=== PATIENT | female | born 1985 | race Caucasian/White ===

== ENCOUNTER → 2021-05-10 09:34 | Outpatient (CLI) | payer BC, SELFPAY ==
--- NOTE | ~2021-05-10 | MR_ITS ---
EXAMINATION: MR knee RT wo con DATE: 05/10/2021 10:21 INDICATION: Generalized right knee pain after running 3 weeks prior TECHNIQUE: Magnetic resonance imaging (MRI) of the right knee was performed without intravenous contr ast. Sequences included coronal PD-weighted FSE, coronal PD-weighted FS FSE, sagittal T2-weighted FS E, sagittal PD-weighted FS FSE and axial PD weighted fat saturated FSE. COMPARISON: None. FINDINGS: Medial compartment: Medial meniscus is normal. Articular cartilage is normal. Lateral compartment: Lateral meniscus is normal. Articular cartilage is normal. Patellofemoral compartment: Articular cartilage is normal. Ligaments and tendons: Anterior and posterior cruciate ligaments are normal. The fibular collateral ligament complex is norm al. There is mild thickening of the proximal medial collateral ligament without surrounding edema con sistent with scarring related to chronic sprain. The quadriceps tendon is normal. There is prominent focal thickening of the proximal patellar tendon with normal low signal intensity along the anterior margin of the lower pole of the patella. There is mild underlying edema consistent with mild prepatel lar bursitis. The visualized medial and lateral hamstring tendons as well as the iliotibial band are normal. Fluid: Physiologic amount of fluid in the joint space. No loose osteochondral bodies identified. Osseous/other: Normal marrow signal. No fracture or pathologic marrow replacing process. IMPRESSION: 1. Mild prepatellar bursitis overlying a region of focal thickening of the patellar tendon could be r elated to localized tendinosis such as in the setting of jumper's knee or potentially a patellar tend on fibroma. 2. Normal menisci, cartilage and stabilizing ligaments of the knee. Reviewed, dictated and finalized at location A. IMPRESSION: 1. Mild prepatellar bursitis overlying a region of focal thickening of the kitchen llar tendon could be related to localized tendinosis such as in the setting of jumper's knee or potentially a patellar tendon fibroma. 2. Normal menisci, cartilage and stabilizing ligaments of the knee.
== END ==
PROVIDERS: PCP Physician Assistant; Visit Provider Chiropractor Rehabilitation
DX: M25.561 Pain in right knee (principal); M71.561 Other bursitis, not elsewhere classified, right knee
CPT/HCPCS: 73721

== ENCOUNTER → 2023-07-30 12:44 | Outpatient (CLI) | payer OTHER, SELFPAY ==
--- NOTE | ~2023-07-30 | MM_ITS ---
EXAMINATION: MM screening eva BI w leroy HISTORY: Screening mammogram TECHNIQUE: Craniocaudal and mediolateral oblique 3-D tomosynthesis images were obtained and synthetic 2-D images were generated. CAD analysis was submitted and interpreted. COMPARISON: None, baseline BREAST PARENCHYMAL COMPOSITION: The breasts are heterogeneously dense, which may obscure small masses . FINDINGS: No suspicious mass, calcification, or architectural distortion are identified in either andrew ast to suggest malignancy. IMPRESSION: 1. No mammographic evidence of malignancy. 2. Recommend routine screening mammography in one year. BI-RADS Category 1: Negative Reviewed, dictated and finalized at location A. 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
== END ==
PROVIDERS: PCP Physician Assistant; Visit Provider Physician Assistant
DX: Z12.31 Encounter for screening mammogram for malignant neoplasm of breast (principal)
CPT/HCPCS: 77063; 77067

== ENCOUNTER 2023-12-09 14:12 | Outpatient (CLI) | payer OTHER, SELFPAY ==
--- NOTE | ~2023-12-09 | US_ITS ---
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 TECHNIQUE: Multiple ultrasound images of the thyroid were obtained. COMPARISON: None. FINDINGS: The right thyroid lobe measures 4.0 x 1.4 x 1.2 cm. The left thyroid lobe measures 3.0 x 0.9 x 0.9 c m. There is heterogeneous echotexture and normal echogenicity throughout the thyroid gland. No discr ete nodules identified. Increased vascular flow is present. IMPRESSION: Sonographic findings consistent with the history of Isabela's thyroiditis. No discrete thyroid nodu les detected. Reviewed, dictated and finalized at location K. IMPRESSION: Sonographic findings consistent with the history of Isabela's thyroiditis. No discrete thyroid nodules detected.
== END 2023-12-09 14:13 ==
LOC: GOSHIMG 14:15
PROVIDERS: PCP Physician Assistant; Visit Provider Physician Assistant
DX: E06.3 Autoimmune thyroiditis (principal)
CPT/HCPCS: 76536

== ENCOUNTER 2024-08-24 13:17 | Outpatient (CLI) | payer OTHER, SELFPAY ==
--- NOTE | ~2024-08-24 | MM_ITS ---
EXAMINATION: MM screening eva BI w leroy HISTORY: Screening TECHNIQUE: Craniocaudal and mediolateral oblique 3-D tomosynthesis images were obtained and synthetic 2-D images were generated. CAD analysis was submitted and interpreted. COMPARISON: 07/30/2023 BREAST PARENCHYMAL COMPOSITION: Dense: The breasts are heterogeneously dense, which may obscure small masses FINDINGS: There is a developing asymmetry inferiorly in the left breast on MLO view, anterior third. The right breast is stable without evidence for malignancy. IMPRESSION: 1. Developing left breast asymmetry. 2. Additional mammographic views and possible breast ultrasound are recommended. BI-RADS Category 0: Incomplete: Needs additional imaging evaluation. Reviewed, dictated and finalized at location B. 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 Developing left breast asymmetry. 2. Additional mammographic views and possible breast ultrasound are recommended . BI-RADS Category 0: Incomplete: Needs additional imaging evaluation.
== END 2024-08-24 13:18 | disposition home or self-care (01) ==
LOC: MICIMG 13:20
PROVIDERS: PCP Physician Assistant; Visit Provider Nurse Practitioner Women's Health
DX: Z12.31 Encounter for screening mammogram for malignant neoplasm of breast (principal); R92.8 Other abnormal and inconclusive findings on diagnostic imaging of breast
CPT/HCPCS: 77063; 77067

== ENCOUNTER 2024-09-21 07:48 | Outpatient (CLI) | payer OTHER, SELFPAY ==
--- NOTE | ~2024-09-21 | MMUS_ITS ---
EXAMINATION: MM diagnostic eva LT w leroy, US breast LT complete HISTORY: Follow-up left breast asymmetry TECHNIQUE: Additional 3-D tomosynthesis images of the left breast were performed and synthetic 2-D im ages were generated. CAD analysis was submitted and interpreted. High resolution Limited left breast ultrasound was performed. COMPARISON: Comparison to multiple prior studies sequentially, with oldest reviewed study dated 07/30. BREAST PARENCHYMAL COMPOSITION: Dense: The breasts are heterogeneously dense, which may obscure small masses FINDINGS: MAMMOGRAPHIC FINDINGS: There are no suspicious masses, calcifications or architectural distortion in the left breast to sugg est malignancy. ULTRASOUND: Complete US of all 4 quadrants of the left breast/s and retroareolar region was reviewed. Normal hete rogeneous echotexture without focal solid or cystic mass. IMPRESSION: 1. No evidence for malignancy in the left breast. 2. Routine yearly screening mammogram and regular clinical breast examination are recommended. BI-RADS Category 1: Negative Reviewed, dictated and finalized at location B. IMPRESSION: 1. No evidence for malignancy in the left breast. 2. Routine yearly screening mammogram and regular clinical breast examination a re recommended. BI-RADS Category 1: Negative
== END 2024-09-21 07:49 | disposition home or self-care (01) ==
LOC: MICIMG 07:49
PROVIDERS: PCP Physician Assistant; Visit Provider Nurse Practitioner Women's Health
DX: R92.8 Other abnormal and inconclusive findings on diagnostic imaging of breast (principal)
CPT/HCPCS: 76641; 77061; 77065; G0279